=== PATIENT | female | born 1945 | race Caucasian/White ===

== ENCOUNTER → 2017-12-24 07:28 | Outpatient (CLI) | payer MEDICARE, OTHER, SELFPAY ==
--- NOTE | 2017-12-24 07:39 | BI_ITS ---
MAMMOGRAPHY - BILATERAL SCREENING REASON FOR EXAM: Female, 72 years old. Routine annual screening examination. PERTINENT HISTORY: Non-contributory. TECHNIQUE: Digital bilateral breast ender (3D mammographic acquisition) in the CC and MLO projections. 2-D mediolateral oblique (MLO) and craniocaudad (CC) views of both breasts were obtained. CAD: Full Field Digital Mammography with Computer Added Detection was performed. COMPARISON: None. Baseline examination. FINDINGS: Breast Composition: There are scattered areas of fibroglandular density. There are no dominant masses or suspicious calcifications. Benign appearing bilateral axillary lymph nodes. No other significant abnormalities are identified. BI/SCREENING MAMM (CAD), BILAT IMPRESSION: Negative screening mammogram. Yearly followup mammogram recommended. (A) ASSESSMENT CATEGORY: BIRADS Category 2: Benign. A letter regarding these results will be sent to the patient by the facility within 30 days. Approximately 10% of breast cancers are not detected by mammography. A normal mammogram should not delay biopsy of a clinically suspicious abnormality. [id number] Electronically Signed: Kenneth Guerrero MD at 9:53 EDT Tel [phone], Service support ,
== END ==
PROVIDERS: Family Provider Family Medicine; PCP Family Medicine; Visit Provider Obstetrics & Gynecology
DX: Z12.31 Encounter for screening mammogram for malignant neoplasm of breast (principal)
CPT/HCPCS: 77063; 77067

== ENCOUNTER 2018-02-01 14:39 | Emergency (ER) | payer MEDICARE, OTHER, SELFPAY ==
[2018-02-01 14:40] VITALS: BP 150/79; PULSE 66; RESP 18; TEMP 36.6; O2SAT 96; BMI 26.6
--- NOTE | 2018-02-01 15:10 | RAD_ITS ---
STUDY: X-RAY - RIGHT KNEE REASON FOR EXAM: Female, 72 years old. CHRONIC KNEE PAIN, WORSE TODAY AFTER DANCING TECHNIQUE: 4 view(s) of the knee. COMPARISON: None. FINDINGS: Normal visualized distal femur. Normal visualized proximal tibia and fibula. Normal proximal tibiofibular articulation. There is mild degenerative arthrosis of the medial femorotibial compartment. Normal lateral femorotibial compartment. There is mild degenerative arthrosis of the patellofemoral articulation. The soft tissue structures are unremarkable. RAD/Knee 4 or More Views IMPRESSION: Degenerative arthrosis. Electronically Signed: Kathryn Lofton MD at 16:29 EDT , Service support ,
--- NOTE | 2018-02-01 15:12 | ED.VISSUMM ---
- ER Visit Summary Date of Service: 02/01/18 Chief Complaint: [] Right knee pain History of Present Illness: The patient is a 72 F c/o right knee pain after doing Polka dancing yesterday. Denies obvious injury or popping sensation. Denies falling. Physical Examination: [] Mild right medial knee pain with ROM testing. No swelling. No rash. No warmth. NVID RLE. Test Results: [] 4 view knee x-rays (right): Degenerative arthritis per radiologist interpretation. Emergency Department Course and Treatment: [] Patient evaluated for pain in the right knee which reveals osteoarthritis. Patient provided William wrap and was encouraged to follow-up with primary care physician. Treatment Plan: [] Follow-up with PCP. Ice, elevate. Disposition: [] Discharge, stable. Impression: [] Right knee pain secondary to osteoarthritis This note was generated with [employer] dictation software. It may contain incorrect words, spelling, and punctuation that were not noted in review of the chart prior to signing ED Disposition - Plan for ED Patient: Chief Complaint: Lower Extremity Injury Referrals: Raleigh Mccormick DO [Primary Care Provider] -
--- NOTE | 2018-02-01 15:15 | ED.DCSUM_ITS ---
- ER Visit Summary Date of Service: 02/01/18 Chief Complaint: [] Right knee pain History of Present Illness: The patient is a 72 F c/o right knee pain after doing Polka dancing yesterday. Denies obvious injury or popping sensation. Denies falling. Physical Examination: [] Mild right medial knee pain with ROM testing. No swelling. No rash. No warmth. NVID RLE. Test Results: [] 4 view knee x-rays (right): Degenerative arthritis per radiologist interpretation. Emergency Department Course and Treatment: [] Patient evaluated for pain in the right knee which reveals osteoarthritis. Patient provided William wrap and was encouraged to follow-up with primary care physician. Treatment Plan: [] Follow-up with PCP. Ice, elevate. Disposition: [] Discharge, stable. Impression: [] Right knee pain secondary to osteoarthritis This note was generated with [employer] dictation software. It may contain incorrect words, spelling, and punctuation that were not noted in review of the chart prior to signing ED Disposition - Plan for ED Patient: Chief Complaint: Lower Extremity Injury Referrals: Raleigh Mccormick DO [Primary Care Provider] -
[2018-02-01 16:13] VITALS: RESP 18
--- NOTE | 2018-02-01 16:34 | ED.DEP ---
ED Disposition - Plan for ED Patient: Disposition: Home or Assisted Living Chief Complaint: Lower Extremity Injury Instructions: Osteoarthritis: Protecting Your Joints, What Is Osteoarthritis? Prescriptions: Naproxen [Naprosyn] 500 mg PO BID PRN PRN #20 tab PRN Reason: Pain Referrals: Raleigh Mccormick DO [Primary Care Provider] -
[2018-02-01 16:45] VITALS: PULSE 89; RESP 22; O2SAT 98
--- NOTE | 2018-02-01 16:46 | ED.RN ---
THIS NURSE REVIEWED D/C INSTRUCTIONS WITH PT. PT VERBALIZED UNDERSTANDING OF INSTRUCTIONS. PT DENIES FURTHER NEEDS OR QUESTIONS AT THIS TIME. PT AMBULATES FROM ROOM ON OWN WITHOUT ASSISTANCE FROM STAFF
== END 2018-02-01 16:47 | disposition home or self-care (01) ==
PROVIDERS: Emergency Provider Emergency Medicine; Family Provider Family Medicine; PCP Family Medicine
DX: M17.11 Unilateral primary osteoarthritis, right knee (principal)
CPT/HCPCS: 73564; 99282

== ENCOUNTER → 2018-02-06 06:18 | Outpatient (CLI) | payer MEDICARE, OTHER, SELFPAY ==
--- NOTE | 2018-02-06 06:26 | MRI_ITS ---
STUDY: MRI RIGHT KNEE REASON FOR EXAM: Right knee pain, popping, positive Juvencio's, injury 4 weeks ago. TECHNIQUE: Standardized fat and water weighted pulse sequences were obtained in all 3 orthogonal planes. COMPARISON: Radiographs 02/01/2018. FINDINGS: There is a complex tear of the posterior horn/posterior body of the medial meniscus (proton-density sagittal images 26-32; proton density coronal images 14, 15) with a displaced flap at the superior aspect of the root of the posterior horn of the medial meniscus (T2 coronal image 15; T2 coronal image 11). There is peripheral subluxation of the medial meniscus. There is mild arthrosis of the medial femorotibial compartment with mild partial-thickness chondral loss of the medial femoral condyle (T2 sagittal image 16). Normal medial femoral condyle and tibial plateau. There is a sprain of the superficial fibers of the medial collateral ligament (T2 coronal image 16). Normal distal semimembranosus, gracilis and semitendinosus tendons. Normal lateral meniscus. Normal hyaline cartilage of the lateral femorotibial compartment. Normal lateral femoral condyle and tibial plateau. Normal proximal tibiofibular articulation. Normal lateral collateral (fibular) ligament. Normal popliteus tendon. Normal biceps femoris tendon. Normal anterior cruciate ligament (ACL). Normal posterior cruciate ligament (PCL). Normal congruent patellofemoral articulation. There are small chondral tears of the patella near the median ridge with mild subchondral cystic change (T2 axial image 11). Normal medial and lateral patellar retinaculum. Normal quadriceps tendon. Normal patellar tendon. Normal Hoffa's fat pad. There is a small joint effusion. There is a small popliteal cyst with extravasation of fluid (T2 sagittal images 13-18). There is edema in the anterior and medial subcutis adipose space. The otherwise visualized osseous structures are unremarkable. MRI/Lower Ext Joint Only (Routine) IMPRESSION: Medial meniscal tear. Medial collateral ligament sprain. Mild arthrosis of the medial femorotibial compartment. Small chondral tears of the patella. Small joint effusion. Small popliteal cyst with extravasation of fluid. Electronically Signed: Paul Rea MD at 8:29 EDT Tel , Service support ,
== END ==
PROVIDERS: Family Provider Family Medicine; PCP Family Medicine; Visit Provider Family Medicine
DX: M25.561 Pain in right knee (principal); M17.11 Unilateral primary osteoarthritis, right knee; S83.241A Other tear of medial meniscus, current injury, right knee, initial encounter; S83.411S Sprain of medial collateral ligament of right knee, sequela
CPT/HCPCS: 73721

== ENCOUNTER → 2018-02-12 12:48 | Outpatient (CLI) | payer MEDICARE, OTHER, SELFPAY ==
[2018-02-12 12:50] LABS: Pathologist Comment May follow
[2018-02-12 13:36] LABS: RBC /Synovial Fluid 0.008 10^6/uL (0); Synovial Fld Mononuclear WBC % 53.2 %; Synovial Fld Polynuclear WBC # 0.441 10^3/ul; Synovial Fld Polynuclear WBC % 46.8 %
[2018-02-12 14:19] LABS: AUTO B FLUID DILUENT BKGD CT WBC <0.1 RBC <0.01 (W<.1,R<.01)
[2018-02-12 14:20] LABS: Source / Synovial Fluid RIGHT KNEE; Source- Body Fluid SYNOVIAL
[2018-02-12 14:21] LABS: Appearance /Synovial Fluid Hazy (CLEAR); Color / Synovial Fluid Straw (Pale Yellow); Viscosity / Synovial Fluid Sl. Viscous (HIGH)
[2018-02-12 14:46] LABS: Body Fluid QC Type(s) BF1Q,BF2Q
[2018-02-12 14:59] LABS: Lymph 43 %; Monocyte /Synovial Fluid 46 %; Neutrophil 5 % (0-25); Other Cell /Synovial Fluid 6 %
[2018-02-13 10:54] LABS: Pathologist Review Reviewed
== END ==
PROVIDERS: Family Provider Family Medicine; Visit Provider Orthopaedic Surgery
DX: S83.231A Complex tear of medial meniscus, current injury, right knee, initial encounter (principal)
CPT/HCPCS: 87070; 87075; 87205; 89050; 89051; 89060

== ENCOUNTER 2018-04-22 07:50 | Day surgery (SDC) | payer MEDICARE, OTHER, SELFPAY ==
[2018-04-22] VITALS (7 sets, daily range): BP systolic 135–165; BP diastolic 65–106; PULSE 58–70; RESP 16–18; TEMP 36.1–36.4; O2SAT 92–98; BMI 26.6
[2018-04-22] MEDS: Cefazolin 2 GM in 0.9% Normal Saline 100 ML IV (07:00)
[2018-04-22] MEDS: Mupirocin Ointment 22gm Tube 1 APPLIC (08:12)
[2018-04-22] MEDS: Bupiv/Epi 0.5% Mpf 30 ML Vial (08:15)
--- NOTE | 2018-04-22 09:12 | OP.PCM_ITS ---
Report of Operation Date of Procedure: 04/22/18 Pre-Operative Diagnosis: right knee osteoarthritis, medial and lateral meniscus tears Post-Operative Diagnosis: same Surgery/Procedure Performed:: sars, partial medial and lateral meniscectomies, patella chondroplasty Type of Anesthesia:: General Anesthesiologist: Ramirez Hernandez Specimen's removed: none Drains: tt- 29 mins Fluids Replaced: 600cc lr see anesth chart Description of Procedure: Preoperative note Patient seen and examined in preoperative holding area. Patient is a 72-year- old female with continued left knee pain despite conservative treatment. MRI confirms medial and possible lateral meniscus tears as well as some arthritis. Risks benefits and alternatives surgery discussed with patient. Risks including but not limited to blood loss, blood clot, infection, neurovascular injury, failure procedure, loss of life and loss of limb. Patient is aware like proceed with right knee arthroscopy repair is indicated. Operative note Patient seen and examined preoperative holding area. Right knee was marked. Patient brought to the operating placed supine on the operating table. Signing , anesthesia, antibiotics were administered. The right leg was prepped and draped with the usual sterile fashion with a tourniquet on her upper thigh. We marked out her incisions for anterior lateral and anterior medial portal placement. The leg was elevated exsanguinated and tourniquet was raised her pressure to 50 torr. We used 11 blade to create her anterior lateral portal after timeout was performed. We visualize the patellofemoral joint she has some fibrillated changes on the superior aspect of the patella. The moved to the medial joint line. She had grade 3 changes throughout her both her medial femoral condyle and her medial tibial plateau. She had a degenerative tear of the posterior horn wrapping around to the mid body was actually on the capsule extension and she had and it was flipped posterior. We created anterior medial portal under direct visualization. We able to pull the piece further into the joint to delineate the amount of the tear. We debrided very minimal of the tear that was flipped however leaving and bulk of it even there was a partial intrasubstance tear as if we had taken out the entire meniscus with a room and to have absolutely no meniscus left in the posterior horn of her knee anteriorly has arthritis that this would hasten the arthritis. ACL and PCL were present in the notch. Patient had a partial tear of her lateral horn of her lateral meniscus which was gently debrided with a shaver and a basket as well. We then inserted a probe to ensure that we had stable meniscus remaining which we did have. The lateral femoral condyle and the lateral tibial plateau were intact and stable to probing as well. The patella was gently debrided back any loose pieces. The knee was an area with copious nonsterile saline. The moved back to the medial joint line to see if there is any other pieces that were unstable please note away in any pieces that were flipped posterior if especially the posterior horn and there was one at about the mid body those were gently debrided with a combination of a shaver and a basket we then moved switch portals and then gently chamfered the transition from the tear to normal meniscus. Again the knee was irrigated with copious amounts sterile saline the portals were closed with interrupted 4-0 nylon and then portals were clipped were anterior injected with 1/4% bupivacaine with epi. Tourniquet was inflated patient transferred to recovery room in stable condition patient tolerated procedure well there are no complications. Postoperative note Weight-bear as tolerated right leg Hospital has prescriptions as They pictures were not printed on the computer his computer is not set up We Call with increased pain numbness tingling or further issues arise Follow-up in 2 weeks This note was generated with [employer] dictation software. It may contain incorrect words, spelling, and punctuation that were not noted in checking the note before signing.
--- NOTE | 2018-04-22 09:12 | DCINST_ITS ---
Discharge Diet: No Restrictions - remove dressings in 4 days and apply bandaids to incision sites, may get incision wet after 4 days, follow up in 2 weeks, call with concerns, ice knee, elevate leg and ankle pumps Discharge Activity: May Not Drive May shower in (days): 1 Ice area for (Minutes): 20 - Every hour while awake. Weight Bearing Status: Weight bearing as tolerated Keep extremity elevated above heart level: Operative Extremity Call your doctor if your incision/area has: Continuous Slow Oozing, Sudden Increased Bleeding, Increased Pain/ Swelling, Increased Redness, Foul Smelling Discharge Call your doctor if you observe: Fever of 101 or Higher, Coldness, Increased Pain, Numbness or Tingling, Change in Color, Calf discomfort Allergies/Adverse Reactions: Allergies No Known Allergies Allergy (Verified 04/15/18 13:51) Medications to take at Discharge Omeprazole [Omeprazole] 20 mg PO DAILY 02/01/18 diclofenac potassium 50 mg tablet 50 mg PO TID tab 02/12/18 Cholecalciferol (Vitamin D3) [Vitamin D3] 2,000 unit PO DAILY 04/15/18 Naproxen [Naprosyn] 220 mg PO PRN PRN 04/15/18 Hydrocodone Bitart/Apap 5-325 [[place] 5MG-325MG] 1 - 2 tablet PO Q6H PRN PRN 5 Days #40 tablet 04/22/18 The following prescriptions were given: Hydrocodone Bitart/Apap 5-325 [[place] 5MG-325MG] 1 - 2 tablet PO Q6H PRN PRN 5 Days #40 tablet PRN Reason: Pain Primary Care Physician: Raleigh Mccormick DO [Primary Care Provider] - Test Results: Test results from this visit will be discussed in further detail at your follow- up appointment, if applicable. Please Follow Up With: Cyndie Hale DO - [phone]
[2018-04-22] MEDS: HYDROcodone Bitartrate/Apap 5/325 Tablet PO (11:33)
--- NOTE | 2018-04-22 12:52 | SUR.PHASEII ---
pt had emesis x2.
== END 2018-04-22 14:36 | disposition home or self-care (01) ==
LOC: SDC 07:50 → AC 07:51
PROVIDERS: Family Provider Family Medicine; PCP Family Medicine; Visit Provider Orthopaedic Surgery
PROC: (CPT 29870; principal; 2018-04-22 09:10)
DX: M17.11 Unilateral primary osteoarthritis, right knee (principal); S83.281D Other tear of lateral meniscus, current injury, right knee, subsequent encounter; S83.241D Other tear of medial meniscus, current injury, right knee, subsequent encounter; E78.00 Pure hypercholesterolemia, unspecified; X58.XXXD Exposure to other specified factors, subsequent encounter
CPT/HCPCS: 01400; 29880; J7120; J2405

== ENCOUNTER 2018-06-12 09:00 | Outpatient (RCR) | payer MEDICARE, OTHER, SELFPAY ==
--- NOTE | 2018-05-15 09:37 | HP.PTEVAL_ITS ---
Patient's Visit Information JOSETTE ESPINOSA is a 73 year old F referred to Physical Therapy by Cyndie Hale DO with a diagnosis of S/P R knee arthroplasty ( med and lat meniscal tear) s/p 04-22-18. Date of Evaluation: 05/15/18 Physical Therapist: Jennifer Daniels - Visit Plan Frequency: 2x /Week Duration: 4 Weeks Plan: 2X/ week for 4 weeks for R knee AROM, R knee and hip strengthening, gait training focus on heel strike and increase knee extension with gait, functional activities, stairs with HEP and modalities as needed - Subjective Subjective: Pt reports that she hurt her knee before this big trip and she gave her a cortizone shot and a brace and was able to go on her trip and it was a lot of walking and she got a long fine but wearing the brace caused her legs to swell. She had surgery Apr 22 (medial and lateral menisectomy with a lot of arthritis). She is walking without a cane and she is not back to her normal walking yet. Her pain is pretty good. Stairs: doing them more and almost ablet to do them like normal but most of the time she is 2 feet to a stair. - Pain R knee pain Pain Intensity (Out of 10): 3 Pain Intensity Range: 5 - Objective Gait: Walks with a normal gait pattern with slightly decreased stance time on the R and decreased knee extension with gait. Pt is able to heel and toe raise without problem. Girth measurements: R knee tibial tub 33, infrapatella 36.8, suprapatella 38.5. L (33, 35.4, 38.5). L knee AROM: o degrees extension to 140 degrees L knee flexion. R knee AROM: -2 degrees from full extension to 130 degrees R knee flexion. LE MMT: R knee flex 4/5, L knee flex 4+/5, b hip flex 4-/5, R knee ext 4-/5 and L 4/5, R hip abd 4-/5 and L 4/5, able to do 3/4 ROM bridges. Stairs: Up and down stairs recip with 1 hand rail with some hesitation and some sign of weakness. - Goals Goal 1:: I HEP Goal Time Frame: 4-6 Weeks Goal 2:: Increase R knee AROM 0- 135 degrees Goal Time Frame: 4-6 Weeks Goal 3:: Walk with normal gait pattern with normal heel to toe pattern and knee extension Goal Time Frame: 4-6 Weeks Goal 4:: Decrease R knee pain to 1/10 with ADL's - Rehabilitation Potential Rehabilitation Potential: Good - Anticipated Interventions Patient/Client Instruction: Educate patient on: Plan of Care For the Purpose of:: To decrease pain, To decrease swelling/inflammation, To increase ROM, To improve nutrient delivery to tissue, To improve muscle performance and motor function, To improve ability to perform ADL's, To increase tolerance to activity/condition/position, To improve performance and independence with ADL's, To decrease level of supervision to perform tasks, To improve ability of physical actions for home/community/work/leisure, To improve gait and locomotor functions, To improve health of tissue, To decrease soft tissue restriction, To increase flexibility/ROM Therapeutic Exercise to Include: Strength training, Endurance training, Postural training, Flexibilty training, Gait and locomotor training, Passive ROM , Active ROM For the Purpose of:: To decrease pain, To decrease swelling/inflammation, To increase ROM, To improve nutrient delivery to tissue, To improve muscle performance and motor function, To improve ability to perform ADL's, To increase tolerance to activity/condition/position, To improve performance and independence with ADL's, To decrease level of supervision to perform tasks, To improve ability of physical actions for home/community/work/leisure, To improve gait and locomotor functions, To improve health of tissue, To decrease soft tissue restriction, To increase flexibility/ROM Functional Training to Include: Gait training For the Purpose of:: To improve gait and locomotor functions IF ES: Yes Cryotherapy (ice pack, ice massage): Yes Thermo therapy (hot pack): Yes Ultrasound (thermal/non thermal): Yes For the Purpose of:: To decrease pain, To decrease swelling/inflammation, To increase ROM, To improve nutrient delivery to tissue Thank you for the opportunity to evaluate your patient. For Medicare and Medicare HMO plans, please review the plan of care and approve it. It will need to be FAXED BACK to us at [phone] for Medicare purposes. Please let me know if there are questions or concerns regarding this plan of care. Physician Signature: Date:
--- NOTE | 2018-06-12 11:08 | HP.PTDCSUM ---
HP - PT D/C Summary It has been my pleasure to treat JOESTTE ESPINOSA under orders from Cyndie Hale DO, for the diagnosis of S/P R knee arthroplasty ( med and lat meniscal tear) s/p 04-22-18 for a total of 9 visit(s). Discharge Date: 06/12/18 Please see the following information for a summary of their discharge status. - Subjective Subjective: Pt reports that her pain is not too bad today. She stayed home yesterday and got stuff done and does not think she had any pain. Pt feels that she is 95% better and that she will continue with her exercises at home asn d through [facility]. She feels that she is 95% better - Pain R knee pain Pain Intensity (Out of 10): 1 - Overall Improvement % Improvement: 95 - Objective Objective/Function: R knee AROM: -1 degree from full extension to 137 degrees R knee flexion. Gait: Walks with normal gait pattern. Able to walk on heels and toes without a problem. Stairs: able to go up and down recip with rail with slight pain in front of B knees without hesitency - Goals Goal 1:: I HEP Goal Progress: Goal Met Goal 2:: Increase R knee AROM 0- 135 degrees Goal Progress: Goal Met Goal 3:: Walk with normal gait pattern with normal heel to toe pattern and knee extension Goal Progress: Goal Met Goal 4:: Decrease R knee pain to 1/10 with ADL's Goal Progress: Goal Met - Plan Plan: 2X/ week for 4 weeks for R knee AROM, R knee and hip strengthening, gait training focus on heel strike and increase knee extension with gait, functional activities, stairs with HEP and modalities as needed - D/C Information Discharge Comments: DC PT If there are questions or concerns regarding this patient's physical therapy, please feel free to call me at [phone]. Thank you for the referral of this patient. Sincerely, Jennifer Daniels
== END 2018-06-12 15:22 | disposition home or self-care (01) ==
LOC: PT 09:00
PROVIDERS: Family Provider Family Medicine; PCP Family Medicine; Visit Provider Orthopaedic Surgery
DX: Z98.890 Other specified postprocedural states (principal)
CPT/HCPCS: 97014; 97110; 97161; G0283

== ENCOUNTER → 2018-10-23 15:18 | Outpatient (CLI) | payer MEDICARE, OTHER, SELFPAY ==
[2018-10-23 17:29] LABS: Absolute Lymphocyte Count 2.19 X10^3/ul (0.83-4.51); Absolute Neutrophil Count 2.6 X10^3/uL (2.0-7.7); Basophil# 0.03 X10^3/uL; Basophil% 0.6 % (0-1); Eosinophil# 0.16 X10^3/uL; Hematocrit 43.7 % (37-47); Hemoglobin 14.2 g/dl (12.0-15.0); Lymphocyte # 2.19 X10^3/ul (4.0); Lymphocyte % 40.9 % (19-41); Mean Corp Hgb Conc 32.5 g/gl (32-36); Mean Corpuscular Volume 89.2 fL (81-99); Mean Platelet Vol. 12.7 fl (6.2-12.0); Monocyte# 0.39 X10^3/uL; Monocyte% 7.3 % (0-10); Neutrophil # 2.58 X10^3/uL (2.7-7.7); Neutrophil % 48.2 % (47-70); Platelet Count 176 K/mm3 (150-450); RBC Distribution Width CV 13.6 % (11.6-14.6); RBC Distribution Width SD 44.6 fl (35.1-43.9); White Blood Count 5.4 K/mm3 (4.4-11.0)
[2018-10-23 17:31] LABS: POSITIVE COUNT NO; POSITIVE DIFFERENTIAL NO; POSITIVE MORPHOLOGY NO
[2018-10-23 17:40] LABS: ALB/GLOB Ratio 1.2 RATIO (0.9-2.4); AST(SGOT) 16 U/L (15-37); Alanine Aminotransfer ALT/SGPT 26 U/L (13-56); Alkaline Phosphatase 88 U/L (45-117); Anion Gap 10 (5-15); BUN 21 mg/dL (7-18); BUN/Creat Ratio 23.3 RATIO (10-20); Calcium,Total 9.4 mg/dL (8.5-10.1); Chloride 106 mmol/L (98-107); Cholesterol 212 mg/dL (200); EST Glomerular Filtration Rate 65 mL/min (>60); Est Glom Filt Rate - Afr Amer 79 mL/min (>60); Globulin 3.4 g/dL (2.2-4.2); Glucose 82 mg/dL (74-106); High Density Lipoprotein 47 mg/dL; Potassium 4.2 mmol/L (3.5-5.1); Protein, Total 7.4 g/dL (6.4-8.2); Sodium Level 143 mmol/L (136-145); T4 Free Direct 1.05 ng/dL (0.76-1.46); Thyroid Stim Hormone (TSH) 2.78 uIU/mL (0.358-3.74); Triglycerides 99 mg/dL; Very Low Density Lipoprotein 20 mg/dL (5-40)
== END ==
PROVIDERS: Family Provider Family Medicine; PCP Family Medicine; Visit Provider Family Medicine
DX: E78.5 Hyperlipidemia, unspecified (principal); E04.2 Nontoxic multinodular goiter; E55.9 Vitamin D deficiency, unspecified; R53.83 Other fatigue
CPT/HCPCS: 36415; 80053; 80061; 82306; 84439; 84443; 85025

== ENCOUNTER → 2018-12-04 09:28 | Outpatient (CLI) | payer MEDICARE, OTHER, SELFPAY ==
--- NOTE | 2018-12-04 09:33 | RAD_ITS ---
STUDY: X-RAY - LEFT KNEE REASON FOR EXAM: Female, 73 years old. Knee pain TECHNIQUE: 4 view(s) of the knee. COMPARISON: None. FINDINGS: Normal visualized distal femur. Normal visualized proximal tibia and fibula. Normal proximal tibiofibular articulation. There is moderate degenerative arthrosis of the medial femorotibial compartment with moderate joint space narrowing. Normal lateral femorotibial compartment. There is mild degenerative arthrosis of the patellofemoral articulation. The soft tissue structures are unremarkable. RAD/Knee 4 or More Views IMPRESSION: Degenerative arthrosis. Electronically Signed: Rommel Beck MD at 11:54 EDT , Service support ,
== END ==
PROVIDERS: Family Provider Family Medicine; PCP Family Medicine; Referring Provider Physician Assistant; Visit Provider Physician Assistant
DX: R52 Pain, unspecified (principal)
CPT/HCPCS: 73564

== ENCOUNTER → 2019-01-26 14:43 | Outpatient (CLI) | payer MEDICARE, OTHER, SELFPAY ==
--- NOTE | 2019-01-26 14:44 | RAD_ITS ---
STUDY: X-RAY - RIGHT HAND, ATTENTION FIRST FINGER REASON FOR EXAM: Female, 73 years old. Pain. TECHNIQUE: 3 view(s) of the finger were obtained. COMPARISON: None. FINDINGS: There is moderate degenerative arthrosis of the carpometacarpal articulation. Normal metacarpal.. Normal metacarpophalangeal joint. Normal proximal phalanx. Normal distal phalanx. There is mild degenerative arthrosis of the proximal interphalangeal joint. RAD/Finger(s) Min 2 Views IMPRESSION: Degenerative changes, as above. No demonstrated fracture, dislocation, or destructive osseous lesion. Electronically Signed: Henry Abarca MD at 3:33 EDT , Service support ,
== END ==
PROVIDERS: Family Provider Family Medicine; PCP Family Medicine; Referring Provider Physician Assistant; Visit Provider Physician Assistant
DX: M24.849 Other specific joint derangements of unspecified hand, not elsewhere classified (principal); R52 Pain, unspecified
CPT/HCPCS: 73140

== ENCOUNTER 2019-02-18 08:30 | Outpatient (RCR) | payer MEDICARE, OTHER, SELFPAY ==
--- NOTE | 2019-02-04 08:15 | HP.OTEVAL ---
Patient's Visit Information JOSETTE ESPINOSA is a 73 year old F, referred to Occupational Therapy by NICOLLE Piper, with a diagnosis of right trigger thumb. Date of Evaluation: 01/28/19 Occupational Therapist: Maddy Thrasher, TORSTEN/Sanchez, CHT - Subjective Subjective: This 73 year old female was seen for initial OT eval with dx of trigger thumb right hand. pt states it started about three weeks ago and it was painful but pain has decreased but still triggering. Pt would like to know what she can do to prevent triggering. - Pain right thumb 0 Pain Intensity Range: 0, 2, 3 - ROM ROM Comments: pt demo with ROM WNL. pt is demo with positive trigger thumb - Strength Rotogravure Press Operator: right 40# left 30# Lateral Pinch: right 10# left 8# Tripod Pinch: right 4# left 8# - Quick DASH-Disab of Arm,Shoulder& Hand Quick DASH Score: 31.8175 - Goals Goal:: pt will demo understanding of orthosis use and precautions by end of 1st session. Goal:: pt will demo full ROM with no trigger by d/c to return pt to PLOF. - Rehabilitation General Assessment: PT demo with trigger of right thumb limititing use of right hand for ADLs and IADLS. Pt would benefit from skilled OT services 1-2x week for 6 weeks. Today therapist kristopher. custom orthosis and ed. pt in wear and care. Pt also ed. on ice to decrease inflamation. pt given handouts and demo understanding of HEP and agree to POC. Rehabilitation Potential: Good - Anticipated Interventions Anticipated Interventions: A/AAROM/PROM, Strengthening, Triggerpoint Release, Modalities, Orthoses - Visit Plan Frequency: 1-2x /Week Duration: 4 Weeks TEXT: Thank you for the opportunity to evaluate your patient. For Medicare and Medicare HMO plans, please review the plan of care and approve it. It will need to be FAXED BACK to us at [phone] for Medicare purposes. Please let me know if there are questions or concerns regarding this plan of care. Physician Signature: Date:
--- NOTE | 2019-02-18 16:51 | HP.OTDCSUM ---
HP - OT D/C Summary It has been my pleasure to treat JOSETTE ESPINOSA under orders from NICOLLE Piper, for the diagnosis of right trigger thumb for a total of 3 visit(s). Please see the following information for a summary of their discharge status. - Objective Objective/Function: pt continues to trigger right thumb will return pt to DrYarelis no change in objective measurements from initial eval - Goals Patient Goals: Use Hand/Wrist/Arm Normally Again, Sleep Better Goal:: pt will demo understanding of orthosis use and precautions by end of 1st session. Goal:: pt will demo full ROM with no trigger by d/c to return pt to PLOF. - Plan Plan: D/C - D/C Information Discharge Comments: Pt was seen and ed. on conservative methods of Trigger finger- and orthosis kristopher. to limit trigger- pt cont. to have trigger thumb-not as painful but no change in trigger- pt rec'd to return to for further eval/tx-pt d/c from OT at this time to pursue further tx by If there are questions or concerns regarding this patient's occupational therapy, please fell free to call me at [phone]. Thank you for the referral of this patient. Sincerely, Maddy Thrasher, OTR/L, CHT
== END 2019-02-18 19:00 | disposition home or self-care (01) ==
LOC: OT 08:30
PROVIDERS: Family Provider Family Medicine; PCP Family Medicine; Referring Provider Physician Assistant; Visit Provider Physician Assistant
DX: M65.311 Trigger thumb, right thumb (principal)
CPT/HCPCS: 97035; 97140; 97166; 97530

== ENCOUNTER → 2019-07-08 10:42 | Outpatient (CLI) | payer MEDICARE, OTHER, SELFPAY ==
--- NOTE | 2019-07-08 10:44 | RAD_ITS ---
STUDY: X-RAY - CERVICAL SPINE REASON FOR EXAM: Female, 74 years old. Right arm pain TECHNIQUE: 6 view(s) of the cervical spine were obtained. COMPARISON: None FINDINGS: Normal anterior atlantoaxial articulation. Normal odontoid process. Normal cervical lordosis. There is endplate spondylosis from C4 to C7. There is narrowing of the C4-5 through C6-7 disc spaces. There is multi-level osseous foraminal stenosis. The soft tissue structures are unremarkable. RAD/Cerv Spine 4 or 5 Views IMPRESSION: Multilevel degenerative changes as detailed above. Electronically Signed: Aurelio Conner MD at 23:17 EDT , Service support ,
--- NOTE | 2019-07-08 10:44 | RAD_ITS ---
STUDY: X-RAY - RIGHT SHOULDER REASON FOR EXAM: Female, 74 years old. Arm pain TECHNIQUE: 3 view(s) of the shoulder. COMPARISON: None. FINDINGS: Normal glenohumeral articulation. Normal acromioclavicular joint. Normal acromion. Normal humeral head and visualized proximal humerus. The soft tissue structures are unremarkable. Normal visualized pulmonary apex. RAD/Shoulder min 2 Views IMPRESSION: Normal x-ray examination of the shoulder. Electronically Signed: Aurelio Conner MD at 23:16 EDT , Service support ,
--- NOTE | 2019-07-08 11:23 | RAD_ITS ---
STUDY: X-RAY - RIGHT HUMERUS REASON FOR EXAM: Female, 74 years old. Arm pain TECHNIQUE: 2 view(s) of the humerus. COMPARISON: None. FINDINGS: Normal visualized humerus. There is no demonstrated fracture or osseous destructive process. There is no demonstrated soft tissue abnormality. RAD/Humerus min 2 Views IMPRESSION: Normal x-ray examination of the humerus. Electronically Signed: Aurelio Conner MD at 23:48 EDT , Service support ,
== END ==
PROVIDERS: Family Provider Family Medicine; Referring Provider Physician Assistant; Visit Provider Physician Assistant
DX: R29.898 Other symptoms and signs involving the musculoskeletal system (principal); M79.601 Pain in right arm
CPT/HCPCS: 72050; 73030; 73060

== ENCOUNTER → 2019-11-22 11:15 | Outpatient (CLI) | payer MEDICARE, OTHER, SELFPAY ==
[2019-11-22 15:36] LABS: Absolute Lymphocyte Count 1.83 X10^3/uL (0.83-4.51); Absolute Neutrophil Count 3.2 X10^3/uL (2.0-7.7); Basophil# 0.04 X10^3/uL; Basophil% 0.7 % (0-1); Eosinophil# 0.24 X10^3/uL; Eosinophils% 4.3 % (0-5); Hemoglobin 14.2 g/dL (12.0-15.0); Lymphocyte # 1.83 X10^3/ul (4.0); Lymphocyte % 32.4 % (19-41); Mean Corp Hgb Conc 32.3 g/dL (32-36); Mean Corpuscular Hgb 28.9 pg (27.0-32.0); Mean Corpuscular Volume 89.6 fL (81-99); Mean Platelet Vol. 13.7 fl (6.2-12.0); Monocyte# 0.37 X10^3/uL; Monocyte% 6.6 % (0-10); NRBC Flagged by Analyzer 0 % (0-5); Neutrophil # 3.15 X10^3/uL (2.7-7.7); Neutrophil % 55.8 % (47-70); Platelet Count 172 K/mm3 (150-450); RBC Distribution Width CV 13.1 % (11.6-14.6); RBC Distribution Width SD 42.7 fl (35.1-43.9); Red Blood Count 4.91 M/mm3 (4.2-5.4); White Blood Count 5.6 K/mm3 (4.4-11.0)
[2019-11-22 15:56] LABS: Vitamin D,25 Hydroxy 39.4 ng/mL
[2019-11-22 16:01] LABS: ALB/GLOB Ratio 1.2 RATIO (0.9-2.4); AST(SGOT) 19 U/L (15-37); Alanine Aminotransfer ALT/SGPT 28 U/L (13-56); Albumin, Serum 3.8 g/dL (3.2-5.0); Alkaline Phosphatase 79 U/L (45-117); Anion Gap 7 (5-15); BUN 22 mg/dL (7-18); BUN/Creat Ratio 24.4 RATIO (10-20); Calcium,Total 9.3 mg/dL (8.5-10.1); Chloride 107 mmol/L (98-107); Cholesterol 211 mg/dL (200); EST Glomerular Filtration Rate 65 mL/min (>60); Est Glom Filt Rate - Afr Amer 79 mL/min (>60); Globulin 3.2 g/dL (2.2-4.2); Glucose 76 mg/dL (74-106); High Density Lipoprotein 42 mg/dL; Potassium 3.7 mmol/L (3.5-5.1); Sodium Level 141 mmol/L (136-145); T4 Free Direct 1.08 ng/dL (0.76-1.46); Triglycerides 187 mg/dL; Very Low Density Lipoprotein 37 mg/dL (5-40)
== END ==
PROVIDERS: PCP Family Medicine; Visit Provider Family Medicine
DX: E78.5 Hyperlipidemia, unspecified (principal); E55.9 Vitamin D deficiency, unspecified; E04.2 Nontoxic multinodular goiter; Z51.81 Encounter for therapeutic drug level monitoring
CPT/HCPCS: 36415; 80053; 80061; 82306; 84439; 84443; 85025

== ENCOUNTER → 2020-03-27 12:00 | Outpatient (CLI) | payer MEDICARE, OTHER, SELFPAY ==
--- NOTE | 2020-03-27 12:04 | BI_ITS ---
MAMMOGRAPHY - BILATERAL SCREENING REASON FOR EXAM: Female, 74 years old. Routine annual screening examination. PERTINENT HISTORY: Non-contributory. TECHNIQUE: Digital bilateral breast jadiel (3D mammographic acquisition) in the CC and MLO projections. 2-D mediolateral oblique (MLO) and craniocaudad (CC) views of both breasts were obtained. CAD: Full Field Digital Mammography with Computer Added Detection was performed. COMPARISON: Comparison is made with prior examination dated December 24, 2017 and November 25, 2016. FINDINGS: Breast Composition: There are scattered areas of fibroglandular density. There are no dominant masses or suspicious calcifications. Stable small benign-appearing bilateral axillary lymph nodes. No other significant abnormalities are identified. There has been no significant change since the prior study. BI/SCREEN MAMM (CAD) W/JADIEL BILAT IMPRESSION: Stable bilateral screening mammogram. Yearly follow-up mammogram recommended. (A) ASSESSMENT CATEGORY: BIRADS Category 2: Benign. A letter regarding these results will be sent to the patient by the facility within 30 days. Approximately 10% of breast cancers are not detected by mammography. A normal mammogram should not delay biopsy of a clinically suspicious abnormality. [id number] Electronically Signed: Kenneth Guerrero, at 13:40 EDT , Service support ,
== END ==
PROVIDERS: PCP Family Medicine; Referring Provider Obstetrics & Gynecology; Visit Provider Obstetrics & Gynecology
DX: Z12.31 Encounter for screening mammogram for malignant neoplasm of breast (principal)
CPT/HCPCS: 77063; 77067

== ENCOUNTER 2020-10-13 11:38 | Outpatient (RCR) | payer MEDICARE, OTHER, SELFPAY ==
[2020-05-01 08:20] VITALS: BMI 26.8
== END 2020-10-13 23:59 ==
LOC: IMMUN 11:38
PROVIDERS: PCP Family Medicine; Visit Provider Family Medicine
DX: Z23 Encounter for immunization (principal)
CPT/HCPCS: 0012A; 91301

== ENCOUNTER → 2020-11-27 09:36 | Outpatient (CLI) | payer MEDICARE, OTHER, SELFPAY ==
[2020-05-01 08:20] VITALS: BMI 26.8
[2020-11-27 12:39] LABS: Absolute Lymphocyte Count 1.65 X10^3/uL (0.83-4.51); Absolute Neutrophil Count 3.1 X10^3/uL (2.0-7.7); Basophil# 0.04 X10^3/uL; Basophil% 0.7 % (0-1); Eosinophil# 0.23 X10^3/uL; Eosinophils% 4.3 % (0-5); Hemoglobin 14.3 g/dL (12.0-15.0); Lymphocyte # 1.65 X10^3/ul (4.0); Lymphocyte % 30.8 % (19-41); Mean Corp Hgb Conc 31.1 g/dL (32-36); Mean Corpuscular Hgb 27.9 pg (27.0-32.0); Mean Corpuscular Volume 89.8 fL (81-99); Mean Platelet Vol. 13.1 fl (6.2-12.0); Monocyte# 0.33 X10^3/uL; Monocyte% 6.2 % (0-10); NRBC Flagged by Analyzer 0 % (0-5); Neutrophil # 3.11 X10^3/uL (2.7-7.7); Platelet Count 181 K/mm3 (150-450); RBC Distribution Width CV 13.3 % (11.6-14.6); RBC Distribution Width SD 43.8 fl (35.1-43.9); Red Blood Count 5.12 M/mm3 (4.2-5.4); White Blood Count 5.4 K/mm3 (4.4-11.0)
[2020-11-27 12:57] LABS: AST(SGOT) 17 U/L (15-37); Alanine Aminotransfer ALT/SGPT 28 U/L (13-56); Albumin, Serum 3.6 g/dL (3.2-5.0); Alkaline Phosphatase 87 U/L (45-117); Anion Gap 3 (5-15); BUN 19 mg/dL (7-18); BUN/Creat Ratio 20.9 RATIO (10-20); Calcium,Total 9.5 mg/dL (8.5-10.1); Chloride 108 mmol/L (98-107); Cholesterol 205 mg/dL (200); Creatinine, Serum 0.91 mg/dL (0.55-1.02); EST Glomerular Filtration Rate 64 mL/min (>60); Est Glom Filt Rate - Afr Amer 78 mL/min (>60); Globulin 3.6 g/dL (2.2-4.2); Glucose 94 mg/dL (74-106); High Density Lipoprotein 43 mg/dL; Potassium 4.2 mmol/L (3.5-5.1); Protein, Total 7.2 g/dL (6.4-8.2); Sodium Level 142 mmol/L (136-145); T4 Free Direct 1.01 ng/dL (0.76-1.46); Thyroid Stim Hormone (TSH) 3.93 uIU/mL (0.358-3.74); Triglycerides 178 mg/dL; Very Low Density Lipoprotein 36 mg/dL (5-40)
[2020-11-27 13:05] LABS: Vitamin D,25 Hydroxy 32.3 ng/mL
== END ==
PROVIDERS: PCP Family Medicine; Visit Provider Family Medicine
DX: E78.5 Hyperlipidemia, unspecified (principal); E55.9 Vitamin D deficiency, unspecified; E04.2 Nontoxic multinodular goiter; Z51.81 Encounter for therapeutic drug level monitoring
CPT/HCPCS: 36415; 80053; 80061; 82306; 84439; 84443; 85025

== ENCOUNTER → 2021-04-10 07:58 | Outpatient (CLI) | payer MEDICARE, OTHER, SELFPAY ==
[2020-05-01 08:20] VITALS: BMI 26.8
--- NOTE | 2021-04-10 08:00 | BI_ITS ---
MAMMOGRAPHY - BILATERAL SCREENING REASON FOR EXAM: Female, 75 years old. Routine annual screening examination. PERTINENT HISTORY: Non-contributory. TECHNIQUE: Digital bilateral breast jadiel (3D mammographic acquisition) in the CC and MLO projections. 2-D mediolateral oblique (MLO) and craniocaudad (CC) views of both breasts were obtained. CAD: Full Field Digital Mammography with Computer Added Detection was performed. COMPARISON: Comparison is made with prior study dated 03/27/2020 and 12/24/2017. FINDINGS: Breast Composition: There are scattered areas of fibroglandular density. There are no dominant masses or suspicious calcifications. Stable benign-appearing bilateral axillary lymph nodes. No other significant abnormalities are identified. There has been no significant change since the prior study. BI/SCRN MAMM (CAD)W/JADIEL BILAT IMPRESSION: Stable bilateral screening mammogram. Yearly follow-up mammogram recommended. (A) ASSESSMENT CATEGORY: BIRADS Category 2: Benign. A letter regarding these results will be sent to the patient by the facility within 30 days. Approximately 10% of breast cancers are not detected by mammography. A normal mammogram should not delay biopsy of a clinically suspicious abnormality. [id number] Electronically Signed: Kenneth Guerrero MD at 8:49 EDT , Service support ,
== END ==
PROVIDERS: PCP Family Medicine; Referring Provider Obstetrics & Gynecology; Visit Provider Obstetrics & Gynecology
DX: Z12.31 Encounter for screening mammogram for malignant neoplasm of breast (principal)
CPT/HCPCS: 77063; 77067

== ENCOUNTER → 2022-07-24 | Outpatient (CLI) | payer MEDICARE, OTHER, SELFPAY ==
--- NOTE | 2022-07-24 13:40 | BI_ITS ---
MAMMOGRAPHY - BILATERAL SCREENING REASON FOR EXAM: Female, 77 years old. Routine annual screening examination. PERTINENT HISTORY: Non-contributory. TECHNIQUE: Digital bilateral breast jadiel (3D mammographic acquisition) in the CC and MLO projections. 2-D mediolateral oblique (MLO) and craniocaudad (CC) views of both breasts were obtained. CAD: Full Field Digital Mammography with Computer Added Detection was performed. COMPARISON: Comparison is made with prior study 04/10/2021 and 03/27/2020. FINDINGS: Breast Composition: There are scattered areas of fibroglandular density. There are no dominant masses or suspicious calcifications. Stable small benign appearing bilateral axillary lymph nodes. No other significant abnormalities are identified. There has been no significant change since the prior study. BI/SCRN MAMM (CAD)W/JADIEL BILAT IMPRESSION: Stable bilateral screening mammogram. Yearly follow-up mammogram recommended. (A) ASSESSMENT CATEGORY: BIRADS Category 2: Benign. A letter regarding these results will be sent to the patient by the facility within 30 days. Approximately 10% of breast cancers are not detected by mammography. A normal mammogram should not delay biopsy of a clinically suspicious abnormality. [id number] Electronically Signed: Kenneth Guerrero MD at 15:06 EST ,
== END | disposition home or self-care (01) ==
LOC: OPBI 13:36
PROVIDERS: PCP Family Medicine; Referring Provider Student in an Organized Health Care Education/Training Program; Visit Provider Student in an Organized Health Care Education/Training Program
DX: Z12.31 Encounter for screening mammogram for malignant neoplasm of breast (principal)
CPT/HCPCS: 77063; 77067

== ENCOUNTER → 2022-09-11 | Outpatient (CLI) | payer MEDICARE, OTHER, SELFPAY | END | disposition home or self-care (01) | LOC: LABSPEC 10:20 | PROVIDERS: PCP Family Medicine; Visit Provider Student in an Organized Health Care Education/Training Program | DX: R30.0 Dysuria (principal) | CPT/HCPCS: 87086; 87088 ==

== ENCOUNTER → 2023-03-11 | Outpatient (CLI) | payer MEDICARE, OTHER, SELFPAY ==
[2023-03-11 12:48] LABS: Absolute Lymphocyte Count 1.43 X10^3/uL (0.83-4.51); Absolute Neutrophil Count 3.3 X10^3/uL (2.0-7.7); Basophil# 0.04 X10^3/uL; Basophil% 0.7 % (0-1); Eosinophil# 0.18 X10^3/uL; Eosinophils% 3.3 % (0-5); Hematocrit 43.2 % (37-47); Hemoglobin 13.9 g/dL (12.0-15.0); Lymphocyte # 1.43 X10^3/ul (0.83-4.51); Lymphocyte % 26.5 % (19-41); Mean Corp Hgb Conc 32.2 g/dL (32-36); Mean Corpuscular Hgb 28.7 pg (27.0-32.0); Mean Corpuscular Volume 89.3 fL (81-99); Monocyte% 7.4 % (0-10); NRBC Flagged by Analyzer 0 % (0-5); Neutrophil # 3.32 X10^3/uL (2.7-7.7); Neutrophil % 61.7 % (47-70); Platelet Count 176 K/mm3 (150-450); RBC Distribution Width CV 13.2 % (11.6-14.6); RBC Distribution Width SD 42.7 fl (35.1-43.9); Red Blood Count 4.84 M/mm3 (4.2-5.4); White Blood Count 5.4 K/mm3 (4.4-11.0)
[2023-03-11 13:33] LABS: AST(SGOT) 14 U/L (15-37); Alanine Aminotransfer ALT/SGPT 19 U/L (13-56); Albumin, Serum 3.6 g/dL (3.2-5.0); Alkaline Phosphatase 75 U/L (45-117); Anion Gap 5 (5-15); BUN 23 mg/dL (7-18); BUN/Creat Ratio 24.8 RATIO (10-20); Calcium,Total 9.6 mg/dL (8.5-10.1); Chloride 109 mmol/L (98-107); Cholesterol 231 mg/dL (200); Creatinine, Serum 0.93 mg/dL (0.55-1.02); EST Glomerular Filtration Rate 63 mL/min (>60); Est Glom Filt Rate - Afr Amer 76 mL/min (>60); Globulin 3.7 g/dL (2.2-4.2); Glucose 85 mg/dL (74-106); High Density Lipoprotein 46 mg/dL; Potassium 3.9 mmol/L (3.5-5.1); Protein, Total 7.3 g/dL (6.4-8.2); Sodium Level 141 mmol/L (136-145); Triglycerides 147 mg/dL; Very Low Density Lipoprotein 29 mg/dL (5-40)
[2023-03-11 13:44] LABS: Vitamin D,25 Hydroxy 51.6 ng/mL
== END | disposition home or self-care (01) ==
LOC: BFHLAB 10:53
PROVIDERS: PCP Family Medicine; Referring Provider Family Medicine; Visit Provider Family Medicine
DX: I10 Essential (primary) hypertension (principal); E78.5 Hyperlipidemia, unspecified; E55.9 Vitamin D deficiency, unspecified
CPT/HCPCS: 36415; 80053; 80061; 82306; 85025

== ENCOUNTER 2023-05-12 07:12 | Emergency (ER) | payer MEDICARE, OTHER, SELFPAY ==
[2023-05-12 07:13] VITALS: BP 135/71; PULSE 79; RESP 16; TEMP 36.2; O2SAT 96; BMI 28.1
--- NOTE | 2023-05-12 07:43 | EDS_ITS ---
HPI HPI - GI History of Present Illness Chief Complaint: Abd Pain Informant: patient Abdominal Pain/Flank Pain Onset: Today Context: Sudden Onset Timing: Continuous Quality: Cramping Location: RLQ, Right Flank and - (Suprapubic) Worsened by: Nothing Relieved by: Nothing Nausea/Vomiting/Emesis GI Symptom: Positive for Nausea and Vomiting Onset: Today Quality: Positive for Nonbilious; Negative for Blood streaks, Coffee ground or Hematemesis Diarrhea/Melena/Hematochezia GI Symptom: Negative for Diarrhea, Melena or Hematochezia Associated Symptoms Associated Symptoms: Positive for Frequency; Negative for Dysuria or Hematuria Narrative Narrative: Patient presents with abdominal pain that began today. Patient states it has been waxing and waning throughout the morning. Patient describes it as cramping. Patient states it is mainly over the suprapubic area and radiates into the right flank area. Patient states nothing makes it better nothing makes it worse. Patient admits to some nausea and vomiting. Patient denies any hematemesis or coffee-ground emesis. Patient denies any diarrhea, melena, or hematochezia. Patient denies any dysuria or hematuria. Patient admits to some urinary frequency but states this is common for her. [facility] Medical History (Updated 05/12/23 @ 09:[address] Shree Jason DO) GERD (gastroesophageal reflux disease) History of arthritis History of hemorrhoids Knee pain Otitis media, left Home Medications omeprazole 20 mg capsule,delayed release 20 mg PO DAILY GERD 02/01/18 [History Last Taken 04/22/18 07:00] naproxen 500 mg tablet 220 mg PO PRN PRN Pain 04/15/18 [History Last Taken Unknown] glucosamine-chondroitin 250 mg-200 mg tablet (Osteo Bi-Flex) 2 tab PO TID 05/01 [History Last Taken Unknown] hydrocodone-acetaminophen 5-325mg 5mg-325mg 1 tab PO Q6H PRN PRN Pain 3 days #10 TABLETS 05/12/23 [Rx Last Taken Unknown] Allergy/AdvReac Type Severity Reaction Status Date / Time No Known Allergies Allergy Verified 05/12/23 07:13 Family History Other Heart disease Surgical History h/o right knee scope H/O tubal ligation Social History Smoking Status: Never smoker ROS ROS ED Constitutional Constitutional ED: Denies chills or fever(s) Eyes Eyes: Denies blurry vision or change in vision ENT ENT ED: Denies rhinorrhea or sore throat Cardiovascular Cardiovascular: Denies chest pain or palpitations Respiratory/Chest Respiratory/Chest: Denies cough or dyspnea Gastrointestinal Gastrointestinal: Reports abdominal pain, nausea and vomiting; Denies diarrhea or melena Genitourinary Genitourinary ED: Denies dysuria or hematuria Musculoskeletal Musculoskeletal: Reports back pain; Denies neck pain Integumentary Denies abscess or rash Neurologic Neurologic: Denies headache(s) or weakness Allergic/Immunologic Allergic/Immunologic ED: Denies mouth swelling or urticaria EXAM Physical Exam Const Vital Signs: 05/12/23 07:13 Temperature 97.1 F L Temperature Source Temporal Pulse Rate 79 Respiratory Rate 16 Blood Pressure 135/71 H Blood Pressure Mean 92 Pulse Ox 96 Oxygen Delivery Method Room Air Positive well nourished and well developed General Appearance ED: well developed and NAD HEENT Reports moist mucous membranes Neck supple and no JVD Resp normal respiratory effort and clear to auscultation bilaterally Cardio regular rate and regular rhythm GI normal to inspection, nondistended, normoactive bowel sounds Palpation: soft and tender RLQ and suprapubic; Negative for guarding or rebound tenderness present Back/Spine no CVA tenderness Extremity normal to inspection General Extremety ED: Negative for edema or tenderness General Extremity: Negative for edema Neuro oriented x3, CN's II-XII intact bilaterally and no sensory deficits noted Sensorium / Orientation: alert Motor Exam: strength 5/5 throughout Psych mental status grossly normal Skin no rashes or lesions noted MDM MDM MDM Narrative Medical decision making narrative: Differential diagnosis includes ureteral calculus, urinary tract infection, pyelonephritis, appendicitis, cholecystitis, cholelithiasis, gastroenteritis, and mesenteric adenitis. CBC will be obtained to assess for leukocytosis and anemia. Comprehensive metabolic profile will be obtained to assess for hepatic function, renal function, and electrolyte abnormality. Urinalysis will be obtained to assess for hematuria and urinary tract infection. CT scan of the abdomen pelvis will be obtained to assess for ureteral calculus and appendicitis. Lab Data Attestation: I reviewed the patient's lab results. Lab results narrative: CBC was reviewed. There is a mild leukocytosis of 13.4. The remainder is within normal limits. Comprehensive metabolic profile was reviewed. Glucose was slightly elevated at 135. BUN was slightly elevated at 23. The remainder is within normal limits. Urinalysis was reviewed. Occult blood was 250 with 5- 10 red blood cells. There is no evidence of urinary tract infection. Labs: Laboratory Results - last 24 hr 05/12/23 07:40 WBC 13.4 H RBC 4.84 Hgb 14.4 Hct 43.5 MCV 89.9 MCH 29.8 MCHC 33.1 RDW Std Deviation 44.0 H RDW Coeff of Estephanie 13.3 Plt Count 193 MPV 12.2 H Immature Gran % (Auto) 0.400 Neut % (Auto) 87.0 H Lymph % (Auto) 6.7 L [place] % (Auto) 5.2 Eos % (Auto) 0.4 Baso % (Auto) 0.3 Absolute Neuts (auto) 11.6 H Absolute Lymphs (auto) 0.89 Nucleated RBC % 0 Sodium 138 Potassium 3.7 Chloride 107 Carbon Dioxide 27.0 Anion Gap 4 L BUN 23 H Creatinine 0.91 Estim Creat Clear Calc 45.42 Est GFR (MDRD) Af Amer 77 Est GFR (MDRD) Non-Af 64 BUN/Creatinine Ratio 25.2 H Glucose 135 H Calcium 9.6 Total Bilirubin 0.50 AST 22 ALT 24 Alkaline Phosphatase 80 Total Protein 7.5 Albumin 3.7 Globulin 3.8 Albumin/Globulin Ratio 1.0 Urine Color Yellow Urine Clarity Clear Urine pH 6.5 Ur Specific [place] 1.015 Urine Protein Negative Urine Glucose (UA) Normal Urine Ketones Negative Urine Occult Blood 250 H Urine Nitrite Negative Urine Bilirubin Negative Urine Urobilinogen Normal Ur Leukocyte Esterase 25 H Urine RBC 5-10 SEEN Urine WBC 0-5 SEEN Ur Squamous Epith Cells 0-5 SEEN Urine Bacteria RARE Urine Mucus RARE Radiography Diagnostic Testing: Clinical Impression(s) from Imaging Studies Abdomen/Pelvis CT 05/12/23 07:53 IMPRESSION: 5.6 mm calculus in the distal portion of the right ureter just proximal to the ureterovesical junction causing mild degree of right hydronephrosis and hydroureter. Small bilateral narrowing is containing fat as well as umbilical hernia. Small cyst in the caudate lobe of the liver. Scarring and/or atelectasis at the lung bases. 7.5 mm noncalcified nodule in the right lower lobe. CT chest follow-up recommended. Electronically Signed: Kenneth Guerrero MD at 8:59 EDT , CT scan of the abdomen pelvis was obtained. There is a 5.6 mm calculus in the distal right ureter just proximal to the ureterovesicular junction causing mild hydronephrosis and hydroureter. There are small bilateral inguinal hernias containing fat as well as an umbilical hernia. There is a 7.5 mm noncalcified nodule in the right lower lobe. This was interpreted by the radiologist and was also independently reviewed by myself. Treatment and Re-Evaluation :: Patient was given IV fluids, morphine, and Zofran here. Patient states her pain is much improved. Patient was advised of her findings. Patient was given a prescription for [place]. Patient was instructed to drink plenty of fluids. Patient was given a referral for urology. Patient was instructed to follow-up with her primary care physician in 5 to 7 days as well. Patient was advised that the pulmonary nodule and the need for follow-up CT scan. Patient understood and was agreeable with the plan. All questions were answered. Discharge Plan Triage Chief Complaint: Abd Pain ED Provider: Shree Jason Dx/Rx/DC Orders Clinical Impression: Calculus of distal right ureter, Incidental pulmonary nodule, > 3mm and < 8mm Instructions: ED Pulmonary Nodule, Solitary, ED Kidney Stone w/ Colic Prescriptions: New hydrocodone-acetaminophen [hydrocodone-acetaminophen] 5-325 mg tablet 1 tab PO Q6H PRN PRN (Reason: Pain) 3 Days Qty: 10 0RF No Action glucosamine-chondroitin 250 mg-200 mg tablet 250-200 mg tablet 2 tab PO TID Rx Instructions: give after food/meal omeprazole 20 MG capsule,delayed release(DR/EC) 20 mg PO DAILY Patient Comments: naproxen 500 MG tablet 220 mg PO PRN PRN (Reason: Pain) Primary Care Provider: Raleigh Mccormick Referrals: Lizett Vargas MD [Med Staff - Active Staff] - 3-5 Days Raleigh Mccormick DO [Primary Care Provider] - 5-7 Days Disposition Disposition: Home, Self Care
--- NOTE | 2023-05-12 07:53 | CT_ITS ---
STUDY: CT ABDOMEN AND PELVIS WITHOUT CONTRAST REASON FOR EXAM: Female, 78 years old. Right flank pain. RADIATION DOSAGE (If Supplied By Facility): CTDIvol = ( 9.41 ) mGy, DLP = ( 460.93 ) mGycm TECHNIQUE: Transaxial images were obtained from the dome of the diaphragm to the symphysis pubis without oral contrast, and without intravenous contrast. Sagittal and coronal images were reconstructed. Individualized dose optimization techniques were used for this CT. COMPARISON: None. FINDINGS: Mild degree of interstitial markings at the lung bases suggestive of either linear atelectasis and/or scarring. There is a faint 7.5 mm noncalcified nodule in the anterior aspect of the right lower lobe. The visualized portions of the heart are within normal limits. There is a 7.4 mm well-defined hypodensity suggestive of a small cyst seen along the medial aspect of the caudate lobe of the liver adjacent to the gallbladder. Normal gallbladder and extrahepatic biliary system. Normal spleen. Normal pancreas. Normal bilateral adrenal glands. Mild degree of a right hydronephrosis and hydroureter due to a 5.6 mm calculus in the distal portion of the right ureter just proximal to the ureterovesical junction. Normal left kidney. Incidental note is made of a left retroaortic renal vein. There is a small hiatal hernia. Normal small intestine. Diverticula are seen in the right hemicolon. The appendix is visualized and appears normal. There is scattered atherosclerotic calcification of the abdominal aorta and its major visceral branches, without a demonstrated aneurysm. Normal inferior vena cava. Normal retroperitoneum. Normal urinary bladder. Calcified fibroid uterus. Small bilateral pneumonitis containing fat slightly worse on the right side. Small umbilical hernia. There are degenerative changes of the visualized lumbar spine. CT/Abdomen/Pelvis without Cont IMPRESSION: 5.6 mm calculus in the distal portion of the right ureter just proximal to the ureterovesical junction causing mild degree of right hydronephrosis and hydroureter. Small bilateral narrowing is containing fat as well as umbilical hernia. Small cyst in the caudate lobe of the liver. Scarring and/or atelectasis at the lung bases. 7.5 mm noncalcified nodule in the right lower lobe. CT chest follow-up recommended. Electronically Signed: Kenneth Guerrero MD at 8:59 EDT ,
[2023-05-12] MEDS: Morphine 4 MG/ML Syringe IV (08:04)
[2023-05-12] MEDS: 0.9% Normal Saline 1,000 ML 1000 ML IV (08:04)
[2023-05-12] MEDS: Ondansetron 4 MG/2 ML Vial IV (08:04)
[2023-05-12 08:11] LABS: Absolute Lymphocyte Count 0.89 X10^3/uL (0.83-4.51); Absolute Neutrophil Count 11.6 X10^3/uL (2.0-7.7); Basophil# 0.04 X10^3/uL; Basophil% 0.3 % (0-1); Color, Urine Yellow (Yellow); Eosinophil# 0.06 X10^3/uL; Eosinophils% 0.4 % (0-5); Glucose, Dipstick Normal (Normal); Hematocrit 43.5 % (37-47); Hemoglobin 14.4 g/dL (12.0-15.0); Ketone-Dipstick Negative (Negative); Leukocyte Esterase-Dipstick 25 /ul (Negative); Lymphocyte # 0.89 X10^3/ul (0.83-4.51); Lymphocyte % 6.7 % (19-41); Mean Corp Hgb Conc 33.1 g/dL (32-36); Mean Corpuscular Hgb 29.8 pg (27.0-32.0); Mean Corpuscular Volume 89.9 fL (81-99); Mean Platelet Vol. 12.2 fl (6.2-12.0); Monocyte% 5.2 % (0-10); NRBC Flagged by Analyzer 0 % (0-5); Neutrophil # 11.63 X10^3/uL (2.7-7.7); Nitrite-Dipstick Negative (Negative); Occult Blood-Urine 250 /ul (Negative); Platelet Count 193 K/mm3 (150-450); Protein-Dipstick Negative (Negative); RBC Distribution Width CV 13.3 % (11.6-14.6); Red Blood Count 4.84 M/mm3 (4.2-5.4); Specific Gravity, Urine 1.015 (1.002-1.030); Urine Bilirubin Dipstick Negative (Negative); Urine Clarity Clear (Clear); Urine Urobilinogen Normal (Normal); Urine pH 6.5 (5.0 - 8.0); White Blood Count 13.4 K/mm3 (4.4-11.0)
[2023-05-12 08:25] LABS: White Blood Cells 0-5 SEEN /hpf (0-5)
[2023-05-12 08:26] LABS: Bacteria RARE /hpf (None Seen); Mucous, Urine RARE /hpf (<or=2+); Red Blood Cells-Urine 5-10 SEEN /hpf (0-5); Squamous Epithelial Cells - UA 0-5 SEEN /hpf (5-10)
[2023-05-12 08:30] LABS: AST(SGOT) 22 U/L (15-37); Alanine Aminotransfer ALT/SGPT 24 U/L (13-56); Albumin, Serum 3.7 g/dL (3.2-5.0); Alkaline Phosphatase 80 U/L (45-117); Anion Gap 4 (5-15); BUN 23 mg/dL (7-18); BUN/Creat Ratio 25.2 RATIO (10-20); Calcium,Total 9.6 mg/dL (8.5-10.1); Chloride 107 mmol/L (98-107); Creatinine, Serum 0.91 mg/dL (0.55-1.02); EST Glomerular Filtration Rate 64 mL/min (>60); Est Glom Filt Rate - Afr Amer 77 mL/min (>60); Estimated Creatinine Clearance 45.42 ml/min; Globulin 3.8 g/dL (2.2-4.2); Glucose 135 mg/dL (74-106); Potassium 3.7 mmol/L (3.5-5.1); Protein, Total 7.5 g/dL (6.4-8.2); Sodium Level 138 mmol/L (136-145)
[2023-05-12 09:23] VITALS: PULSE 74; RESP 12; O2SAT 99
== END 2023-05-12 09:29 | disposition home or self-care (01) ==
PROVIDERS: Emergency Provider Emergency Medicine; PCP Family Medicine; Visit Provider Emergency Medicine
DX: N13.2 Hydronephrosis with renal and ureteral calculous obstruction (principal); R91.1 Solitary pulmonary nodule; K21.9 Gastro-esophageal reflux disease without esophagitis
CPT/HCPCS: 74176; 80053; 81001; 85025; 96361; 96374; 96375; 99282; J7030; A4216; J2405

== ENCOUNTER → 2023-06-02 | Outpatient (CLI) | payer MEDICARE, OTHER, SELFPAY ==
--- NOTE | 2023-06-02 18:35 | CT_ITS ---
INDICATION: PULMONARY NODULE EXAMINATION: CT CHEST WITH CONTRAST - CT Chest W/ Contrast Injection TECHNIQUE: Helically acquired images were obtained of the chest following IV contrast. A radiation dose optimization technique was used for this scan. IV Contrast dosage and agent: RADIATION DOSAGE (If Supplied By Facility): CTDIvol = ( 9.98 ) mGy, DLP = ( 346.83 ) mGycm COMPARISON: Previous CT scan of the abdomen and pelvis of 05/12/2023. FINDINGS: LUNGS, PLEURA AND LARGE AIRWAYS: Hypoventilatory changes in the lung bases. Previously noted 7.5 mm right lower lung nodule abutting the right hemidiaphragm is faintly visualized at this time due to motion artifacts. No focal infiltrate otherwise is seen. No pleural effusion or thickening. No pneumothorax. THYROID: No thyroid lesions. HEART AND PERICARDIUM: Heart size is normal. No pericardial effusion. VESSELS: Thoracic aorta is not dilated. No aortic dissection. No obvious central pulmonary embolism although this study was not performed with the pulmonary embolism protocol. MEDIASTINUM AND TWILA: No mediastinal or hilar adenopathy. Esophagus is unremarkable. No hiatal hernia. UPPER ABDOMEN: Heterogeneously enhancing spleen likely due to arterial phase of scanning with possible masses. BONES: No suspicious lytic or blastic abnormality. Mild degenerative changes of the thoracic spine and increased kyphosis. Deformity of the sternum likely due to misregistration artifacts. CT/Chest WITH Contrast IMPRESSION: 1. Right lower lobe nodule barely visualized due to motion but appears to be unchanged. Follow-up CT of the chest in 3 months is recommended according to Fleischner Society recommendation. 2. Otherwise no mass, adenopathy or focal acute pulmonary infiltrate. 3. Heterogeneous lobulated spleen which can be further evaluated by follow-up exam of the abdomen at the same time of the chest. Electronically Signed: Jose Cruz Almanzar MD at 13:42 EDT ,
== END | disposition home or self-care (01) ==
LOC: CT 18:33
PROVIDERS: PCP Family Medicine; Referring Provider Family Medicine; Visit Provider Family Medicine
DX: R91.1 Solitary pulmonary nodule (principal)
CPT/HCPCS: 71260; Q9967

== ENCOUNTER → 2023-06-13 | Outpatient (CLI) | payer MEDICARE, OTHER, SELFPAY ==
--- NOTE | 2023-06-13 12:41 | CT_ITS ---
STUDY: CT ABDOMEN AND PELVIS WITHOUT CONTRAST REASON FOR EXAM: Female, 78 years old. KIDNEY STONES- recent one she thinks she passed RADIATION DOSAGE (If Supplied By Facility): CTDIvol = ( 9.81 ) mGy, DLP = ( 473.10 ) mGycm TECHNIQUE: Transaxial images were obtained from the dome of the diaphragm to the symphysis pubis without oral contrast, and without intravenous contrast. Sagittal and coronal images were reconstructed. Individualized dose optimization techniques were used for this CT. COMPARISON: Comparison is made with prior examination dated May 12, 2023. FINDINGS: Stable faint 7.5 mm noncalcified nodule in the right lower lobe abutting the right diaphragm. The visualized portions of the heart are within normal limits. There is decreased attenuation of the liver consistent with steatosis. Stable subcentimeter hypodensity in the medial aspect of the caudate lobe. Normal gallbladder and extrahepatic biliary system. Normal spleen. Normal pancreas. Normal bilateral adrenal glands. Normal right kidney. Normal left kidney. Normal visualized stomach. Normal small intestine. Normal colon. The appendix is visualized and appears normal. Normal abdominal aorta. Normal inferior vena cava. Normal retroperitoneum. Normal urinary bladder. There is a 4.7 mm calculus in the distal portion of the right ureter just proximal to the ureterovesical junction. No evidence of hydronephrosis. Calcified fibroid uterus. Small bilateral inguinal hernias containing fat. Normal osseous structures. CT/Abdomen/Pelvis without Cont IMPRESSION: 4.7 mm calculus is seen in distal portion of the right ureter just proximal to the ureterovesical junction. Electronically Signed: Kenneth Guerrero MD at 14:50 EDT ,
== END | disposition home or self-care (01) ==
LOC: CT 12:40
PROVIDERS: PCP Family Medicine; Referring Provider Urology; Visit Provider Urology
DX: N20.0 Calculus of kidney (principal)
CPT/HCPCS: 74176

== ENCOUNTER → 2023-07-03 | Outpatient (CLI) | payer MEDICARE, OTHER, SELFPAY ==
[2023-07-03 12:20] LABS: Absolute Lymphocyte Count 1.62 X10^3/uL (0.83-4.51); Absolute Neutrophil Count 3.8 X10^3/uL (2.0-7.7); Basophil# 0.05 X10^3/uL; Basophil% 0.8 % (0-1); Eosinophil# 0.18 X10^3/uL; Hematocrit 42.8 % (37-47); Hemoglobin 13.7 g/dL (12.0-15.0); Lymphocyte # 1.62 X10^3/ul (0.83-4.51); Mean Corpuscular Hgb 28.5 pg (27.0-32.0); Mean Corpuscular Volume 89.2 fL (81-99); Mean Platelet Vol. 11.6 fl (6.2-12.0); Monocyte# 0.37 X10^3/uL; Monocyte% 6.2 % (0-10); NRBC Flagged by Analyzer 0 % (0-5); Neutrophil # 3.76 X10^3/uL (2.7-7.7); Neutrophil % 62.7 % (47-70); Platelet Count 319 K/mm3 (150-450); RBC Distribution Width CV 13.1 % (11.6-14.6); RBC Distribution Width SD 42.9 fl (35.1-43.9)
[2023-07-03 12:42] LABS: Anion Gap 5 (5-15); BUN 22 mg/dL (7-18); BUN/Creat Ratio 22.2 RATIO (10-20); Chloride 109 mmol/L (98-107); Creatinine, Serum 0.99 mg/dL (0.55-1.02); EST Glomerular Filtration Rate 58 mL/min (>60); Est Glom Filt Rate - Afr Amer 70 mL/min (>60); Glucose 91 mg/dL (74-106); Potassium 4.4 mmol/L (3.5-5.1); Sodium Level 141 mmol/L (136-145)
== END | disposition home or self-care (01) ==
LOC: BFHLAB 10:35
PROVIDERS: PCP Family Medicine; Visit Provider Family Medicine
DX: D69.6 Thrombocytopenia, unspecified (principal); E87.6 Hypokalemia
CPT/HCPCS: 36415; 80048; 85025

== ENCOUNTER → 2024-03-12 | Outpatient (CLI) | payer MEDICARE, OTHER, SELFPAY ==
[2024-03-12 12:11] LABS: Absolute Lymphocyte Count 1.38 X10^3/uL (0.83-4.51); Absolute Neutrophil Count 2.7 X10^3/uL (2.0-7.7); Basophil# 0.04 X10^3/uL; Basophil% 0.9 % (0-1); Eosinophils% 4.3 % (0-5); Hematocrit 45.3 % (37-47); Hemoglobin 14.7 g/dL (12.0-15.0); Lymphocyte # 1.38 X10^3/ul (0.83-4.51); Lymphocyte % 29.5 % (19-41); Mean Corp Hgb Conc 32.5 g/dL (32-36); Mean Corpuscular Hgb 28.9 pg (27.0-32.0); Monocyte# 0.31 X10^3/uL; Monocyte% 6.6 % (0-10); NRBC Flagged by Analyzer 0 % (0-5); Neutrophil # 2.74 X10^3/uL (2.7-7.7); Neutrophil % 58.5 % (47-70); Platelet Count 173 K/mm3 (150-450); RBC Distribution Width CV 13.2 % (11.6-14.6); RBC Distribution Width SD 42.8 fl (35.1-43.9); Red Blood Count 5.09 M/mm3 (4.2-5.4); White Blood Count 4.7 K/mm3 (4.4-11.0)
[2024-03-12 12:31] LABS: Vitamin D,25 Hydroxy 38.9 ng/mL
[2024-03-12 12:49] LABS: ALB/GLOB Ratio 1.1 RATIO (0.9-2.4); AST(SGOT) 18 U/L (15-37); Alanine Aminotransfer ALT/SGPT 26 U/L (13-56); Albumin, Serum 3.8 g/dL (3.2-5.0); Alkaline Phosphatase 74 U/L (45-117); Anion Gap 6 (5-15); BUN 28 mg/dL (7-18); BUN/Creat Ratio 30.7 RATIO (10-20); Calcium,Total 9.7 mg/dL (8.5-10.1); Chloride 109 mmol/L (98-107); Cholesterol 206 mg/dL (200); Creatinine, Serum 0.91 mg/dL (0.55-1.02); EST Glomerular Filtration Rate 64 mL/min (>60); Est Glom Filt Rate - Afr Amer 77 mL/min (>60); Globulin 3.5 g/dL (2.2-4.2); Glucose 98 mg/dL (74-106); High Density Lipoprotein 49 mg/dL; Protein, Total 7.3 g/dL (6.4-8.2); Sodium Level 142 mmol/L (136-145); Thyroid Stim Hormone (TSH) 2.74 uIU/mL (0.358-3.74); Triglycerides 154 mg/dL; Very Low Density Lipoprotein 31 mg/dL (5-40)
== END | disposition home or self-care (01) ==
LOC: BFHLAB 09:57
PROVIDERS: PCP Family Medicine; Referring Provider Family Medicine; Visit Provider Family Medicine
DX: E78.5 Hyperlipidemia, unspecified (principal); D69.6 Thrombocytopenia, unspecified; E55.9 Vitamin D deficiency, unspecified; E04.2 Nontoxic multinodular goiter
CPT/HCPCS: 36415; 80053; 80061; 82306; 84443; 85025

== ENCOUNTER → 2024-04-27 | Outpatient (CLI) | payer MEDICARE, OTHER, SELFPAY ==
--- NOTE | 2024-04-27 10:23 | BI_ITS ---
MAMMOGRAPHY - BILATERAL SCREENING REASON FOR EXAM: Female, 79 years old. Routine annual screening examination. PERTINENT HISTORY: Non-contributory. TECHNIQUE: Digital bilateral breast jadiel (3D mammographic acquisition) in the CC and MLO projections. 2-D mediolateral oblique (MLO) and craniocaudad (CC) views of both breasts were obtained. CAD: Full Field Digital Mammography with Computer Added Detection was performed. COMPARISON: Comparison is made with prior study dated July 24, 2022 and April 10, 2021. FINDINGS: Breast Composition: There are scattered areas of fibroglandular density. There are no dominant masses or suspicious calcifications. Stable retraction of the left areolar complex. No other significant abnormalities are identified. There has been no significant change since the prior study. BI/SCRN MAMM (CAD)W/JADIEL BILAT IMPRESSION: Stable bilateral screening mammogram. Yearly follow-up mammogram recommended. (A) ASSESSMENT CATEGORY: BIRADS Category 2: Benign. A letter regarding these results will be sent to the patient by the facility within 30 days. Approximately 10% of breast cancers are not detected by mammography. A normal mammogram should not delay biopsy of a clinically suspicious abnormality. [id number] Electronically Signed: Kenneth Guerrero MD at 11:53 EDT ,
== END | disposition home or self-care (01) ==
LOC: OPBI 10:19
PROVIDERS: PCP Family Medicine; Referring Provider Family Medicine; Visit Provider Family Medicine
DX: Z12.31 Encounter for screening mammogram for malignant neoplasm of breast (principal)
CPT/HCPCS: 77063; 77067

== ENCOUNTER → 2025-04-12 | Outpatient (CLI) | payer MEDICARE, OTHER, SELFPAY ==
[2025-04-12 12:52] LABS: Hematocrit 43.0 % (37-47); Hemoglobin 14.0 g/dL (12.0-15.0); Immature Granulocytes Count 0.020 X10^3/uL (0.0-0.0); Mean Corp Hgb Conc 32.6 g/dL (32-36); Mean Corpuscular Volume 87.9 fL (81-99); Mean Platelet Vol. 13.0 fl (6.2-12.0); NRBC Flagged by Analyzer 0 % (0-5); Platelet Count 188 K/mm3 (150-450); RBC Distribution Width CV 13.0 % (11.6-14.6); RBC Distribution Width SD 42.4 fl (35.1-43.9); Red Blood Count 4.89 M/mm3 (4.2-5.4); White Blood Count 5.8 K/mm3 (4.4-11.0)
[2025-04-12 13:35] LABS: AST(SGOT) 17 U/L (<=31); Alanine Aminotransfer ALT/SGPT 12 U/L (<=34); Albumin, Serum 4.2 g/dL (3.4-4.8); Alkaline Phosphatase 81 U/L (35-104); Anion Gap 12 (5-15); BUN 21 mg/dL (4-19); BUN/Creat Ratio 25.8 RATIO (10-20); Calcium,Total 10.2 mg/dL (7.6-11.0); Carbon Dioxide 23.1 mmol/L (21.0-32.0); Chloride 106 mmol/L (98-108); Cholesterol 228 mg/dL (<=200); Globulin 2.9 g/dL (2.2-4.2); Glucose 95 mg/dL (70-99); Low Density Lipoprotein Calc. 149 mg/dL; Magnesium 2.4 mg/dL (1.5-2.2); Potassium 4.4 mmol/L (3.3-5.1); Triglycerides 146 mg/dL; Very Low Density Lipoprotein 29 mg/dL (5-40); cholesterol:hdl ratio screen 4.55
== END | disposition home or self-care (01) ==
LOC: BFHLAB 10:39
PROVIDERS: PCP Family Medicine; Visit Provider Family Medicine
DX: E78.5 Hyperlipidemia, unspecified (principal); R79.9 Abnormal finding of blood chemistry, unspecified; E04.2 Nontoxic multinodular goiter; E55.9 Vitamin D deficiency, unspecified; Z51.81 Encounter for therapeutic drug level monitoring; M79.10 Myalgia, unspecified site
CPT/HCPCS: 36415; 80053; 80061; 83735; 84439; 84443; 85025

== ENCOUNTER → 2025-05-03 | Outpatient (CLI) | payer MEDICARE, OTHER, SELFPAY ==
--- NOTE | 2025-05-03 14:15 | BI_ITS ---
EXAM: SCRN MAMM (CAD)W/JADIEL BILAT DATE: 05/03/2025 CLINICAL HISTORY: F, Age 80 y/o , SCREENING No family history. TECHNIQUE: SCRN MAMM (CAD)W/JADIEL BILAT COMPARISON: Prior exam(s) dated April 27, 2024.. FINDINGS: TISSUE DENSITY: There are scattered areas of fibroglandular density. Bilateral Breast Mammographic Findings: No significant masses, calcifications or other abnormalities are identified. Stable small benign-appearing bilateral axillary lymph nodes. No suspicious masses, areas of developing architectural distortion, or suspicious calcifications. There has been no significant interval change. BI/SCRN MAMM (CAD)W/JADIEL BILAT IMPRESSION: Stable examination. OVERALL FINAL ASSESSMENT BI-RADS 2: BENIGN RECOMMENDATION: Routine annual follow-up in 1 Year A letter with findings and recommendations will be mailed to the patient. Reading Location: [id number]
== END | disposition home or self-care (01) ==
LOC: OPBD 14:11
PROVIDERS: PCP Family Medicine; Referring Provider Family Medicine; Visit Provider Family Medicine
DX: Z12.31 Encounter for screening mammogram for malignant neoplasm of breast (principal)
CPT/HCPCS: 77063; 77067

== ENCOUNTER → 2025-05-06 | Outpatient (CLI) | payer MEDICARE, OTHER, SELFPAY ==
--- NOTE | 2025-05-06 14:07 | BD_ITS ---
PROCEDURE: DEXA BONE DENSITY STUDY 05/06/2025 REASON FOR EXAM: F, age 80 y/o . Postmenopausal. TECHNIQUE: DEXA BONE DENSITY STUDY COMPARISON: Prior study dated November 22, 2015. FINDINGS: BMD and T-SCORES Lumbar spine: 1.110 g/cm2, T-score 0.4 Levels: L1 through L4 Change from prior: Improvement of 1%. Left femoral neck: 0.639 g/cm2, T-score -1.9 Femoral neck comparison data not recommended for monitoring change. Left total hip: 0.826 g/cm2, T-score -1.0 Change from prior: Loss of 11.3%. Right femoral neck: 0.754 g/cm2, T-score -0.9 Femoral neck comparison data not recommended for monitoring change. Right total hip: 0.929 g/cm2, T-score -0.1 Change from prior: Loss of 1.4%. The World Health Organization has defined the following categories based on bone density: Normal bone density: T-score equal to or greater than -1.0 Osteopenia: T-score between -1.0 and -2.5 Osteoporosis: T-score equal to or less than -2.5 FRAX (or Comparable) Fracture Risk Assessment: 10 Year Probability of Fracture: Major Osteoporotic Fracture: 14% Hip Fracture: 3.5% (Note: FRAX is not to be reported in setting of normal range bone density, osteoporosis on DEXA, known history of osteoporosis, prior osteoporotic hip or vertebral fracture, or for any patient undergoing pharmacological treatment for bone loss.) The National Osteoporosis Foundation (NOF) recommends pharmacological treatment for patients with a FRAX 10-year risk of 3% or higher for a hip fracture, or 20% or higher for a major osteoporotic fracture, to prevent osteoporosis and reduce fracture risk. The patient does meet the pharmacological treatment recommendations for prevention of osteoporosis. BD/Dexa Bone Density Study IMPRESSION: OSTEOPENIA. Recommend follow-up as clinically warranted. Reading Location: [id number]
== END | disposition home or self-care (01) ==
LOC: OPBD 14:01
PROVIDERS: PCP Family Medicine; Referring Provider Family Medicine; Visit Provider Family Medicine
DX: M85.89 Other specified disorders of bone density and structure, multiple sites (principal)
CPT/HCPCS: 77080

== ENCOUNTER 2025-08-10 11:30 | Outpatient (RCR) | payer MEDICARE, OTHER, SELFPAY ==
--- NOTE | 2025-04-25 11:00 | HP.PTEVAL ---
Patient's Visit Information Visit Information Visit Information: JOSETTE ESPINOSA is a 79 year old F referred to Physical Therapy by Dr. Raleigh Mccormick DO with a diagnosis of L hip bursitis. Date of Evaluation: 04/25/25 Physical Therapist: John Flowers DPT Visit Plan Frequency: 2x /Week Duration: 4 Weeks Plan: 1) L IT band stretch, piriformis stretch 2) glute med and max strengthening. R quad and hip strengthening as well. 3) may use US to L greater trochanter if needed for pain control. 3.3 MHz, continuous duty cycle Subjective Subjective: Pt. is here today for her initial evaluation with diagnosis of L greater trochanteric bursitis. Pt. reports having pain a few months, but has improved since initial onset. Pt. reports no mech of injury. Pt. is still having some stiffness and pain at night. Pt. reports no N/T in either LE. Pt. reports pain at her gluteal region, but does have pain that radiates down at times. Pt. does have increased symptoms after prolonged walking and at night. Pt. is hopeful to reduce symptoms in order to get back to all gym and recreational activities without limitations. Pain L lateral hip: Pain Intensity (Out of 10): 0 Pain Intensity Range: 0 and 3 Objective Objective: POSTURE: Pt. fong fairly normal posture in stance. PALPATION: Pt. has tenderness along IT band on L side. Greatest pain directly over L greater trochanter. NEURO: Normal sensation in BLEs, normal DTR of BLEs. ROM: LUMBAR SPINE: min loss throughout stiffness noted no pain. R hip: flexion normal, abd normal, ER 60deg NE, IR 30deg NE.. L hip: flexion normal, abd 45deg normal, ER 45deg increase NW, IR 30deg NE. Pt. has normal HS length bilaterally. MMT: RLE: knee: ext 36#, flex 18.4#; hip: flexion 13.7#, abd 13.1# LLE: knee: ext 26.8#, flex 17.1#; hip: flexion 14.8, abd 5# increase NW. GAIT: pt. ambulates without AD. She lacks R TKE during stance phase. Pt. has increased antalgic pattern during R stance phase. Slight reverse Trendelenburg noted on L side. Balance/Special Test Scores Lower Extremity Functional Score: 43 Goals Goal 1:: LTG: Pt. to be I with HEP for glute strengthening and IT band/piriformis stretching. Goal Time Frame: 4-6 Weeks Goal 2:: LTG: pt. to have symmetrical strength between B hips. Goal Time Frame: 4-6 Weeks Goal 3:: LTG: pt. to ambulate unlimited distances without increase in L hip pain. Goal Time Frame: 4-6 Weeks Goal 4:: LTG: Pt. to sleep throughout the night without increase in L hip Rehabilitation Potential Physical Therapy Diagnosis: Pt. has signs and symptoms consistent with L hip bursitis. Pt. has marked hypomobility, weakness and difficulty with gait. Pt. would benefit from PT to address the above limitations progressing back to all previous activities. Rehabilitation Potential: Excellent Anticipated Interventions Patient/Client Instruction: Educate patient on: Condition, Plan of Care, Risk Factors and Benefits of Fitness Program For the Purpose of:: To facilitate caregiver knowledge, To improve self management, To prevent re-injury, To improve ability to perform tasks related to life management and To improve tolerance to ADL's Therapeutic Exercise to Include: Strength training, Power training, Agility training, Body mechanics, Flexibilty training, Gait and locomotor training and Dynamic Lumbar Stabilization For the Purpose of:: To decrease pain, To increase ROM, To improve nutrient delivery to tissue, To increase oxygenation perfusion, To improve muscle performance and motor function, To improve ability to perform ADL's, To increase tolerance to activity/condition/position, To improve health of tissue and To decrease soft tissue restriction Ultrasound (thermal/non thermal): Yes For the Purpose of:: To decrease pain, To decrease swelling/inflammation and To increase ROM Text: Thank you for the opportunity to evaluate your patient. For Medicare and Medicare HMO plans, please review the plan of care and approve it. It will need to be FAXED BACK to us at [phone] for Medicare purposes. For Medicare only, by signing this I certify the plan of care. Please let me know if there are questions or concerns regarding this plan of care. Physician Signature: Date:
--- NOTE | 2025-08-10 12:03 | HP.PTDCSUM ---
Discharge Summary D/C summary: It has been my pleasure to treat JOSETTE ESPINOSA referred by Dr. Raleigh Mccormick DO, with the diagnosis of L hip bursitis for a total of 23 visit(s). Discharge Date: 08/10/25 Please see the following information for a summary of their discharge status. Subjective Subjective: Pt. reports that her L hip is doing well. She saw her histology supervisor whom believes her ankle is an arthritis flare up. Pt. reports that her L hip is 75% better overall. Pain L lateral hip: Pain Intensity (Out of 10): 0 Lumbar spine: Pain Intensity (Out of 10): 0 R knee: Pain Intensity (Out of 10): 1 L knee: Pain Intensity (Out of 10): 0 Overall Improvement % Improvement: 90 Objective Objective/Function: RLE: hip: flexion 23.3#, abd 24.0#, ext 20.6# LLE: hip: flexion 20.9#, abd 21.4#, ext 22.3# ROM: pt. has good hip ROM, but is limiited with full extension of her R knee. Pt. has some ankle stiffness B, but not severe. STAIRS: normal, methodical, but able to complete reciprocally without issues. GAIT: fairly normal pattern. She does lack TKE on R side. Overall her hip is much better. I am going to DC her back to PCP at this point in time. She has a gym program and plans on completing by her self at this point in time. Goals Goal 1:: LTG: Pt. to be I with HEP for glute strengthening and IT band/piriformis stretching. Goal Progress: Goal Met Goal 2:: LTG: pt. to have symmetrical strength between B hips. Goal Progress: Goal Met Goal 3:: LTG: pt. to ambulate unlimited distances without increase in L hip pain. Goal Progress: Goal Met Goal 4:: LTG: Pt. to sleep throughout the night without increase in L hip Goal Progress: Goal Met Goal 5:: LTG: pt. to be I with gym exercises of BLE strengthening. Goal Progress: Goal Met Plan Plan: DC back to PCP. D/C Information d/c sentence: If there are questions or concerns regarding this patient's physical therapy, please feel free to call me at [phone]. Thank you for the referral of this patient. Sincerely, John Dobsonos, DPT Balance/Gait/Functional tests Balance/Special Test Scores Lower Extremity Functional Score: 57 Improvement % Improvement: 90
== END 2025-08-10 19:00 | disposition home or self-care (01) ==
LOC: PT 11:30
PROVIDERS: PCP Family Medicine; Referring Provider Family Medicine; Visit Provider Family Medicine
DX: M70.72 Other bursitis of hip, left hip (principal)
CPT/HCPCS: 97110; 97161; 97530